=== PATIENT | male | born 1965 | race Hispanic/Latino ===

== ENCOUNTER 2022-09-13 10:28 | Emergency (ER) | payer OTHER ==
[~2022-09-13] VITALS: Ht 165.1 cm; Wt 88.5 kg
[2022-09-13] MEDS ORDERED: SOLU-MEDROL 125MG VIAL IVP ONE (10:30)
[2022-09-13 10:54] LABS: BASOPHILS % (AUTO) 0.4 % (0.0-5.0); EOSINOPHILS % (AUTO) 0.9 % (0.0-8.0); HEMATOCRIT 49.8 % (42-54); LYMPHOCYTES % (AUTO) 27.5 % (21.0-51.0); MEAN CORPUSCULAR HGB CONC 33.5 g/dL (32.0-36.0); MEAN CORPUSCULAR VOLUME 86.5 fL (79-99); MONOCYTES % (AUTO) 4.4 % (3.0-13.0); NEUTROPHILS % (AUTO) 66.3 % (40.0-77.0); PLATELET COUNT (AUTO) 286 K/uL (130-400); RED BLOOD CELL COUNT(AUTO) 5.76 MIL/uL (4.50-6.20); RED CELL DISTRIBUTION WIDTH 13.4 % (11.0-15.5)
[2022-09-13 11:07] LABS: ALBUMIN 3.2 g/dL (3.5-5.0); CREATININE 1.2 mg/dL (0.5-1.5)
[2022-09-13 11:08] LABS: POTASSIUM 2.5 mmol/L (3.5-5.1)
[2022-09-13 11:11] VITALS: BP 130/60
[2022-09-13 11:11] LABS: TOTAL PROTEIN, SERUM 6.2 g/dL (6.0-8.3)
[2022-09-13] MEDS ORDERED: POTASSIUM CHLORIDE 10% ELIXIR 20 MEQ/15 ML UDCUP PO ONE (11:30)
[2022-09-13] MEDS ORDERED: POTASSIUM CHLORIDE 20 MEQ/100 ML BAG IV SCH (11:30)
[2022-09-13] MEDS ORDERED: ONDANSETRON 4MG INJ ONE (12:05)
[2022-09-13] MEDS ORDERED: PRED50TA2 PO (12:06)
[2022-09-13] MEDS ORDERED: DIPH50 PO (12:06)
[2022-09-13] MEDS ORDERED: LIDOCAINE HCL 1% 20 ML VIAL ONE (12:06)
[2022-09-13] MEDS ORDERED: ONDANSETRON 4MG INJ IV ONE (12:30)
== END 2022-09-13 14:34 | disposition home or self-care (01) ==
LOC: EDH 10:28
DX: R11.0 Nausea (principal); T63.441A Toxic effect of venom of bees, accidental (unintentional), initial encounter; Y92.89 Other specified places as the place of occurrence of the external cause
CPT/HCPCS: 99284; 96374; 96361; 96375; 80053; 85025; 36415; J2930; J2405; J3480